=== PATIENT | female | born 1960 | race Caucasian/White ===

== ENCOUNTER → 2016-05-26 | Outpatient (CLI) | payer OTHER, BC ==
[~2016-05-26] MED LIST: ALDACTONE 25MG25 M1 PO; CARVEDILOL12.5 MG PO; CIPRO 500MG TA500 MG PO; COREG12.5 MG PO; CRESTOR 10MG10 MG PO; EDGE PO; EFFEXOR XR75 MG/CAP PO; ESTRACE2 MG PO; FE-TABS325 MG PO; FEOSOL325 MG PO; FLAGYL500 MG PO; GOOD SENSE ASP325 M1 PO; IMDUR 30MG30 MG/TAB PO; ISOSORBIDE30 MG PO; KETOROLAC TROME10 MG PO; LEVAQUIN 5500 MG/TA1 PO; LEXAPRO10 MG PO; LISINOPRIL2.5 MG PO; METRONIDAZOLE500 MG PO; NITROQUICK0.4 MG SL; OXYBUTYNIN5 MG PO; PERCOCET 325 MG1 TA2 PO; PLAVIX 75MG TAB75 MG PO; PRAVASTATIN SOD40 MG PO; PROBIOTIC1 EAC1 PO; PROTONIX40 MG/Pack PO; VYTORIN 10 MG-21 TAB PO; ZANTAC 300300 MG PO; [UNRECOGNIZED DRUG - OTHER] PO; biocleanse PO
[2016-05-26 11:42] VITALS: BP 145/77
[2016-05-26 13:17] VITALS: BP 159/93
[2016-05-26 14:29] VITALS: BP 132/62; BP 156/89
== END ==
LOC: AMSURD 11:33
DX: E86.0 Dehydration (principal); R19.7 Diarrhea, unspecified; K52.9 Noninfective gastroenteritis and colitis, unspecified
CPT/HCPCS: C9113; J7030

== ENCOUNTER 2016-10-30 10:13 | Emergency (ER) | payer OTHER, BC ==
[~2016-10-30] VITALS: Wt 86.3 kg
[~2016-10-30 10:13] MED LIST changes: -CARVEDILOL12.5 MG PO; -EDGE PO; -FEOSOL325 MG PO; -PROBIOTIC1 EAC1 PO; -[UNRECOGNIZED DRUG - OTHER] PO; -biocleanse PO
[2016-10-30] MEDS ORDERED: PROBIOTIC1 EAC1 PO (13:00)
[2016-10-30] MEDS ORDERED: [UNRECOGNIZED DRUG - OTHER] PO (13:01)
[2016-10-30] MEDS ORDERED: EDGE PO (13:01)
[2016-10-30] MEDS ORDERED: biocleanse PO (13:01)
[2016-10-30] MEDS ORDERED: FEOSOL325 MG PO (13:02)
[2016-10-30] MEDS ORDERED: CARVEDILOL12.5 MG PO (13:04)
[2016-10-30 14:38] VITALS: BP 140/76
== END 2016-10-30 14:38 | disposition home or self-care (01) ==
LOC: ED 10:13
DX: K62.5 Hemorrhage of anus and rectum (principal); K57.30 Diverticulosis of large intestine without perforation or abscess without bleeding; E86.0 Dehydration; R07.9 Chest pain, unspecified; R06.02 Shortness of breath; I25.10 Atherosclerotic heart disease of native coronary artery without angina pectoris; I10 Essential (primary) hypertension; Z95.5 Presence of coronary angioplasty implant and graft; Z79.02 Long term (current) use of antithrombotics/antiplatelets
CPT/HCPCS: J7030; Q9967

== ENCOUNTER 2016-10-30 23:45 | Emergency (ER) | payer OTHER, BC ==
[~2016-10-30] VITALS: Ht 152.4 cm; Wt 85.0 kg
[~2016-10-30 23:45] MED LIST changes: +CARVEDILOL12.5 MG PO; +EDGE PO; +FEOSOL325 MG PO; +PROBIOTIC1 EAC1 PO; +[UNRECOGNIZED DRUG - OTHER] PO; +biocleanse PO
[2016-10-31 01:41] VITALS: BP 153/93
== END 2016-10-31 01:41 | disposition short-term general hospital (02) ==
LOC: ED 23:45
DX: I21.4 Non-ST elevation (NSTEMI) myocardial infarction (principal); I25.10 Atherosclerotic heart disease of native coronary artery without angina pectoris; I10 Essential (primary) hypertension; E78.5 Hyperlipidemia, unspecified; Z95.5 Presence of coronary angioplasty implant and graft; K92.2 Gastrointestinal hemorrhage, unspecified; Z79.02 Long term (current) use of antithrombotics/antiplatelets; F41.9 Anxiety disorder, unspecified; Z87.19 Personal history of other diseases of the digestive system
CPT/HCPCS: J2060; J3010; J7030

== ENCOUNTER → 2017-10-09 | Outpatient (CLI) | payer BC | LOC: MAMMO 13:43 | DX: Z12.31 Encounter for screening mammogram for malignant neoplasm of breast (principal) ==

== ENCOUNTER 2018-02-13 11:04 | Outpatient (RCR) | payer BC | END 2018-04-02 09:36 | disposition home or self-care (01) | LOC: CARDREHAB 11:04 | DX: Z48.812 Encounter for surgical aftercare following surgery on the circulatory system (principal); Z95.1 Presence of aortocoronary bypass graft ==

== ENCOUNTER 2019-05-08 10:00 | Outpatient (RCR) | payer BC | END 2019-08-05 | disposition home or self-care (01) | LOC: CARDREHAB | DX: Z48.812 Encounter for surgical aftercare following surgery on the circulatory system (principal); Z95.5 Presence of coronary angioplasty implant and graft ==